=== PATIENT | female | born 1940 | race Caucasian/White ===

== ENCOUNTER 2019-08-20 10:26 | Inpatient (IN) | payer MEDICARE, SELFPAY ==
[2019-07-31 09:16] VITALS: BMI 32.1
[2019-07-31 10:44] VITALS: BP 173/63; PULSE 77; RESP 18; TEMP 37; O2SAT 100
[2019-08-20] VITALS (10 sets, daily range): BP systolic 132–161; BP diastolic 51–63; PULSE 84–96; RESP 16–20; TEMP 36.1–37.1; O2SAT 95–100; BMI 32.6
--- NOTE | ~2019-08-20 | XR_ITS ---
EXAMINATION: XR knee LT 2V DATE: 08/20/2019 10:32 INDICATION: Left knee arthroplasty. Postop. TECHNIQUE: 2 views of left knee were obtained. COMPARISON: Left knee radiographs 07/31/2019 FINDINGS: There is a total left knee arthroplasty without patellar resurfacing in near-anatomic align ment. No fracture. There is gas in the knee joint and soft tissues, consistent with recent surgery. S kin jackson are noted. IMPRESSION: 1. Total left knee arthroplasty in near-anatomic alignment. Reviewed, dictated and finalized at location [facility]
[2019-08-20] MEDS: LACTATED RINGERS 1,000 ML 30 ML IV CONT ×2 (06:50→10:22)
[2019-08-20] MEDS: IBUPROFEN IV 800 MG/200 ML 800 MG/200 ML BAG 400 MG IVPB (07:04)
[2019-08-20 07:06] LABS: Glucose Point of Care 145 (65-105)
--- NOTE | 2019-08-20 07:17 | WPDANESEPPF ---
Anes - Initial Pre Proc Eval Procedure: Operation Date: 08/20/19 07:30 Proposed Procedures p Left Total Knee Arthroplasty - Malcolm Hester MD Date/Time: 08/20/19 07:17 Surgeon: Malcolm Hester MD Pre Op Diagnosis: Left Knee DJD Patient Data Age: 79 Gender: F Height: 5 ft 8 in Weight: 95.6 kg Last Vital Signs Temp 36.3 C L 08/20/19 07:07 Pulse 96 08/20/19 07:07 Resp 20 08/20/19 07:07 BP 161/59 H 08/20/19 07:07 Pulse Ox 100 08/20/19 07:07 Allergies Allergy/AdvReac Type Severity Reaction Status Date / Time codeine Allergy Unknown Nausea Verified 07/31/19 14:00 sitagliptin Allergy Unknown yeast Verified 07/31/19 14:00 infection Home Medications Medication Instructions Recorded Confirmed Type amlodipine 10 mg tablet 10 mg PO DAILY 06/19/19 08/20/19 History furosemide 40 mg tablet 40 mg PO QAM 06/19/19 08/20/19 History glimepiride 2 mg tablet 2 mg PO QAM 06/19/19 08/20/19 History insulin glargine 100 unit/mL (3 14 unit SUB-Q .QHS ml 06/19/19 08/20/19 History mL) subcutaneous pen losartan 100 mg tablet 100 mg PO DAILY 06/19/19 08/20/19 History metformin 500 mg tablet,extended 500 mg PO QID tablet 06/19/19 08/20/19 History release 24 hr spironolactone 25 mg tablet 50 mg PO DAILY tablet 06/19/19 08/20/19 History aspirin [Enteric Coated Aspirin] 81 mg PO DAILY 07/31/19 08/20/19 History pxvbwlj-kwcshaper-jafb 1 tablet PO DAILY 07/31/19 08/20/19 History chlorhexidine gluconate 4 % 1 applic TOPICAL ONCE #3785 ml 07/31/19 07/31/19 Rx topical liquid naproxen sodium [Aleve] 440 mg PO DAILY 07/31/19 08/20/19 History simvastatin [Zocor] 20 mg PO HS 07/31/19 08/20/19 History sulfamethoxazole 800 1 tablet PO Q12H #14 tablet 08/06/19 Rx mg-trimethoprim 160 mg tablet Laboratory Tests 08/20/19 06:53 POC Capillary Glucose 145 mg/dl H mg/dl (65-105) Patient hx anesthesia problems: none Family hx anesthesia problems: none PMFSH Past Medical History Medical History DM renal manif type II Surgical History Surgical History History of total knee arthroplasty Presence of right artificial knee joint Status post ORIF of fracture of ankle Family History Family History Other Diabetes mellitus Family history of arthritis Family history of cardiovascular disease Hypertension Social History Social History Smoking status: Never smoker Second hand tobacco smoke exposure: No Alcohol intake: never Substance use: never Substance use type: does not use Gender identity (if verbalized by the patient): Female Anes - Eval Final PreProcedure Day of Procedure 08/20/19 07:17 Patient weight: obese Heart: regular rate and rhythm Lungs: clear to auscultation Airway: Mallampati scale class III Neurological: alert and oriented Last oral intake: >/= 8 hours ASA classification: III Emergent: no Anesthetic plan: proceed Anesthesia type and monitoring: general LMA and standard monitoring Informed Consent: The patient's anesthetic plan and its attendant risks and benefits were discussed with the patient/family/POA. Questions were solicited and answers provided to the satisfaction of the patient/family/POA.
--- NOTE | 2019-08-20 07:36 | WPDHPUPDATE1 ---
History and Physical Update Update Date/Time: 08/20/19 07:36 History and Physical has been reviewed, including an updated exam of the patient. There are NO changes in the patient's condition. Risks, benefits, and alternatives have been discussed and questions answered. Patient agrees to proceed with procedure.
--- NOTE | 2019-08-20 07:49 | WPDANESPNB ---
Anes - Peripheral Nerve Block Date/Time: 08/20/19 07:49 I have discussed with the patient/family/POA the placement of a left femoral nerve block for post-operative pain management, including associated risks, benefits, complications, and side effects. Alternative methods of post-operative analgesia were detailed. Questions were solicited and answers provided to the satisfaction of the patient/family/POA. Time-Out: A pre-procedural Time-Out was completed immediately before starting the procedure and confirmed: Patient Identification, Site, Procedure, Patient Position and the Availability of Requisite Equipment. Clinical Indications: Acute post-operative pain management requested by the operative surgeon. Nerve Block Insertion Note Anes-nerve block: femoral Patient position: supine Skin prep: chlorhexidine Needle: 22 gauge, stimulating, insulated echogenic needle. Needle length: 120 mm Technique: nerve stimulation lost at (mA) Injectate: bupivacaine 0.5% with epi 5 mcg/ml (30) and dexamethasone (mg) (8mg) Observations: tolerated well Complications: none Procedure start time:: 744 Procedure end time:: 748
[2019-08-20] MEDS: ceFAZolin 2 GM/D5W 50 ML 2 GM/50 ML BAG IVPB ×3 (07:51→23:12)
[2019-08-20] MEDS: GENTAMICIN BONE CEMENT REFOBACIN 1 EACH TOPICAL (08:31)
--- NOTE | 2019-08-20 10:24 | PM.OP ---
Procedure Note - Brief Procedure Note - Brief Date of procedure: 08/20/19 Pre-op diagnosis: Left Knee DJD Post-op diagnosis: same Procedure performed: L TKA Anesthesia: GETA Surgeon: Malcolm Hester MD Estimated blood loss (mL): 100 Drains: No Complications: No immediate complications Condition: stable Disposition: PACU
[2019-08-20 10:35] LABS: Glucose Point of Care 171 (65-105)
--- NOTE | 2019-08-20 11:23 | ADMGEN ---
This patient, Sarahi French, was admitted to -. Patient/family oriented to hospital policies and general routines including ID bracelet, bed and alarms, visiting hours, pain management, procedures, bathroom and other care routines, personal items, smoking policy, room service/diet, and visiting hours. Valuables list has been completed. Information on how to activate the Rapid Response Team has been discussed. Patient/Family are encouraged to report perceived risks to care and to ask questions if they do not understand what they are told or what they should do.
--- NOTE | 2019-08-20 12:33 | PM.IMCN ---
Assessment and Plan Assessment and plan (1) S/P total knee arthroplasty: Code(s): Z96.659 - Presence of unspecified artificial knee joint Status: Acute Assessment and Plan: Patient will be going home with the clerical administrative assistant of her daughter. Pain management per Dr. Hester. DVT prophylaxis per Dr. Hester. (2) Type 2 diabetes mellitus with hyperglycemia: Code(s): E11.65 - Type 2 diabetes mellitus with hyperglycemia Status: Chronic Assessment and Plan: Sliding scale insulin and continue with a long-acting insulin. Patient was restarted on metformin per Dr. Hester. Please continue to monitor BMP. Continue with Amaryl (3) Chronic kidney disease, stage 3 (moderate): Code(s): N18.3 - Chronic kidney disease, stage 3 (moderate) Status: Chronic Assessment and Plan: Recheck BMP in the morning creatinine within normal limits GFR 60. (4) Hypertensive chronic kidney disease with stage 1 through stage 4 chronic kidney disease, or unspecified chronic kidney disease: Code(s): I12.9 - Hypertensive chronic kidney disease with stage 1 through stage 4 chronic kidney disease, or unspecified chronic kidney disease Status: Acute Assessment and Plan: Resume home medications of Norvasc spironolactone and losartan (5) Mixed hyperlipidemia: Code(s): E78.2 - Mixed hyperlipidemia Status: Chronic Assessment and Plan: Continue with Zocor HPI Data of Consult Consult date: 08/20/19 Requesting Physician: Malcolm Hester MD Primary Care Provider: Carlos Zuluaga MD Consult Narrative Narrative: Sarahi French is a 79 year old female who has severe degenerative joint disease in both of her knees. The patient underwent a right total knee arthroplasty on 03/26/2019 and recovered well. The patient has tried multiple conservative measures including physical therapy injections pain management and lifestyle changes. Patient electively underwent a left total knee arthroplasty per Dr. Hester today. Patient did have a nerve block today and is not having any discomfort. Patient does complain of some left hip pain but after repositioning she felt better. No complaints of nausea vomiting. She plans to have her daughter come stay with her to recover. She said her last admission she only was sent home on a high dose of aspirin for anticoagulation. She did well with that. I thank Dr. Hester for the opportunity to consult on this pleasant lady. Date of service 08/20/2019 Review of Systems Review of Systems: All systems reviewed & are unremarkable except as noted in HPI and below Constitutional: Constitutional: Reports as per HPI and Reports no additional constitutional complaints Eyes: Eyes: Reports as per HPI and Reports no additional eye complaints ENT: Reports system reviewed and no additional complaints, except as documented and Reports Normal hearing present Cardiovascular: Cardiovascular: Reports no additional cardiovascular complaints Respiratory: Respiratory: Reports no additional respiratory complaints and Reports no additional respiratory complaints Gastrointestinal: Gastrointestinal: Reports as per HPI and Reports no additional gastrointestinal complaints Musculoskeletal: Musculoskeletal: Reports no additional musculoskeletal complaints Integumentary/Breasts: Skin/Breast: Reports system reviewed and no additional complaints, except as docu and Reports as per HPI Neurologic: Reports system reviewed and no additional complaints, except as documented, Reports as per HPI and Reports Normal hearing present Psychiatric: Psychiatric: Reports no additional psychiatric complaints and Reports as per HPI Endocrine: Endocrine: Reports no additional endocrine complaints Hematologic/Lymphatic: Hematologic/Lymphatic: Reports no additional hematologic/lymphatic complaints Allergic/Immunologic: Allergic/Immunologic: Reports no additional allergic/immunologic complaints
[2019-08-20] MEDS: SODIUM CHLORIDE 0.9% IV 1,000 ML 125 ML IV CONT (12:49)
[2019-08-20] MEDS: metFORMIN HCL XR 500 MG TAB.SR.24H PO ×2 (12:52→17:09)
[2019-08-20] MEDS: DIAZEPAM 5 MG TABLET PO (13:03)
--- NOTE | 2019-08-20 13:29 | OP_ITS ---
DATE OF PROCEDURE: 08/20/2019 PREOPERATIVE DIAGNOSIS: Left knee DJD. POSTOPERATIVE DIAGNOSIS: Left knee DJD. PROCEDURE: Left total knee arthroplasty. ANESTHESIA: General. COMPLICATIONS: None. INDICATIONS: This is a 79-year-old female with end-stage left knee DJD. She was indicated for left total knee arthroplasty. DESCRIPTION OF PROCEDURE: The patient was taken to the operating room in stable position and placed in the supine position. General anesthesia induced and the left lower extremity was prepped and draped sterilely from the toes to the thigh. Incision was made down to the subcutaneous tissues. Medial parapatellar arthrotomy was performed. The patella was everted. There was severe arthrosis in all 3 compartments of the knee joint. IM jan was placed in the femur. Femoral IM jan was placed and a distal femoral cut was made at 5 degrees of valgus removing approximately 10 mm of bone from the high side. Next, the knee was sized to 62.5, a cutting block was placed in line with Whitesides line in the transepicondylar axis. Anterior, posterior, and chamfer cuts were made to the femur. The cuts were excellent. Next, an IM jan was placed in the tibia and a transtibial cut was made removing approximately 10 mm of bone from the high side of the tibia. The tibia was planed to a smooth surface. Posterior osteophytes were removed with an osteotome from the femur. A 71 tibial trial was placed in line with one-third medial aspect of the tibial tubercle. A 62.5 femoral trial was placed and then, eventually a 12 poly was placed. The knee came out to full extension. There was good stability in varus-valgus stress in both flexion and extension. There was good AP stability. The patella tracked without any tilt. There was no excessive rollback in flexion. The trial components were removed and then, a Biomet 71 mm tibial component and a 62.5 femoral component were cemented into place and then, a 12 poly component was secured into place. Once the cement had hardened, the knee was taken through range of motion, was found to be stable to varus valgus stress in both flexion and extension. There was good AP stability and there was good tracking of the patella with no excessive rollback in flexion. The tourniquet was deflated. The bleeders were cauterized. The knee joint was irrigated with sterile Betadine sterile water for approximately 3 minutes and then the arthrotomy was approximated with #1 Vicryl, subcutaneous with 2-0 Vicryl, and the skin with jackson. Wounds washed and placed sterile dressing. The patient was extubated and sent to Recovery. Khalida I MT: Real
[2019-08-20] MEDS: DOCUSATE SODIUM 100 MG CAPSULE PO (17:09)
[2019-08-20] MEDS: CELECOXIB 200 MG CAPSULE PO (17:09)
[2019-08-20] MEDS: INSULIN ASPART (*BKC) 100 UNITS/ML SUB-Q (17:15)
[2019-08-20 17:36] LABS: Glucose Point of Care 342 (65-105)
[2019-08-20] MEDS: metFORMIN HCL XR 500 MG TAB.SR.24H 1000 MG PO (20:38)
[2019-08-20] MEDS: SIMVASTATIN 20 MG TABLET PO (20:38)
[2019-08-20 21:33] LABS: Glucose Point of Care 279 (65-105)
[2019-08-20] MEDS: INSULIN GLARGINE (*BKC) 100 UNITS/ML 14 UNITS SUB-Q (21:50)
[2019-08-21 02:00] VITALS: BP 146/55; PULSE 108; RESP 18; TEMP 36.5; O2SAT 98
[2019-08-21 06:00] VITALS: BP 138/66; PULSE 99; RESP 18; TEMP 36.6; O2SAT 98
[2019-08-21 07:07] LABS: Blood Urea Nitrogen 22 mg/dL (7-17); Carbon Dioxide 21 mmol/L (22-30); Chloride 107 mmol/L (98-107); Estimated CRCL calculation 54 ml/min; Estimated Glomerular Filt Rate 60; Glucose 131 mg/dL (65-105); Potassium 4.2 mmol/L (3.4-5.0); Sodium 140 mmol/L (137-145)
[2019-08-21 07:07] LABS: Basophils Percent Auto 0.1 % (0.2-1.2); Hematocrit 32.1 % (37.0-47.0); Hemoglobin 10.5 g/dL (12.0-15.0); Immature Granulocyte Absolute 0.14 K/mm3 (0.00-0.031); Immature Granulocyte Percent A 0.8 % (0-0.5); Lymphocytes Absolute Auto 1.38 K/mm3 (0.9-3.2); Lymphocytes Percent Auto 7.6 % (18.3-44.2); Mean Corpuscular HGB Conc 32.7 g/dl (32-36); Mean Corpuscular Hemoglobin 29.8 pg (26-34); Mean Corpuscular Volume 91.2 fl (80-100); Mean Platelet Volume 10.8 fl (7.4-10.4); Monocytes Absolute Auto 1.8 K/mm3 (0.1-0.6); Monocytes Percent Auto 9.8 % (2.6-8.5); Neutrophils Absolute Auto 14.8 K/mm3 (1.3-6.7); Neutrophils Percent Auto 81.7 % (45.5-73.1); Platelet Count Result 331 k/mm3 (150-375); Red Blood Count 3.52 M/mm3 (4.2-5.4); Red Cell Distribution Width 13.6 % (11.5-14.5); White Blood Count 18.2 K/mm3 (4.5-10.0)
[2019-08-21] MEDS: ceFAZolin 2 GM/D5W 50 ML 2 GM/50 ML BAG IVPB (08:00)
[2019-08-21] MEDS: LOSARTAN POTASSIUM 100 MG TABLET PO (08:01)
[2019-08-21] MEDS: SPIRONOLACTONE 50 MG TABLET PO (08:01)
[2019-08-21] MEDS: CELECOXIB 200 MG CAPSULE PO ×2 (08:01→17:24)
[2019-08-21] MEDS: FUROSEMIDE 40 MG TABLET PO (08:01)
[2019-08-21] MEDS: GLIMEPIRIDE 2 MG TABLET PO (08:02)
[2019-08-21] MEDS: ASPIRIN 325 MG ENTERIC TABLET 650 MG PO (08:02)
[2019-08-21] MEDS: metFORMIN HCL XR 500 MG TAB.SR.24H 1000 MG PO ×2 (08:02→20:16)
[2019-08-21] MEDS: DOCUSATE SODIUM 100 MG CAPSULE PO ×2 (08:03→17:24)
[2019-08-21] MEDS: AMLODIPINE BESYLATE 5 MG TABLET 10 MG PO (08:03)
[2019-08-21 10:00] VITALS: BP 127/45; PULSE 64; RESP 14; TEMP 36.4; O2SAT 98
--- NOTE | 2019-08-21 10:49 | PM.PNORT ---
Progress Note: A&P Assessment and Plan (1) S/P total knee arthroplasty: Qualifiers: Laterality: left Qualified Code(s): Z96.652 - Presence of left artificial knee joint Code(s): Z96.659 - Presence of unspecified artificial knee joint Status: Acute Assessment and Plan: POD #1: LEFT TKA Continue PT/OT. WBAT with walker. Fall Risk. Continue pain control. Ice. No pillows under knee. Dressing changed. Incision well-approximated. No signs of dehiscence or infection. Continue DVT prophylaxis with Aspirin. Continue SCDs. Incentive spirometry. Dispo: Home with Home Health likely today pending progress with PT/OT. Subjective Subjective Date/Time Seen: 08/21/19 10:49 Post Op day: 1 Principal diagnosis: Left TKA Interval history: No complaints. Denies pain. Wants to go home. Working well with PT/OT. Review of Systems Review of Systems: All systems reviewed & are unremarkable except as noted in HPI and below Constitutional: Constitutional: Denies fever(s) and Denies headache(s) ENT: Denies headache(s) Cardiovascular: Cardiovascular: Denies chest pain, Denies diaphoresis, Denies palpitations and Denies dyspnea Respiratory: Respiratory: Denies dyspnea Gastrointestinal: Gastrointestinal: Denies abdominal pain, Denies constipation, Denies nausea and Denies vomiting Genitourinary: Genitourinary: Reports nocturia and Denies dysuria Musculoskeletal: Musculoskeletal: Reports arthralgias (Left Knee ) and Reports joint swelling (Left Knee ) Neurologic: Denies headache(s) Endocrine: Endocrine: Denies palpitations Exam Const: General: comfortable and no acute distress Resp: Effort & Inspection: normal respiratory effort Cardio: Rate: regular rate Rhythm: regular rhythm GI: GI Palp: Yes Soft to palpation, No Tenderness to palpation present (GI) and No Guarding due to palpation present (GI) Skin: Wounds: wounds noted Other: Incision c/d/i. No surrounding redness/warmth. No hematoma. Mild ecchymosis. No wound dehiscence Neuro: Cognition (Neuro): normal cognition Other: NV intact aside from block. Moves toes. Sensation intact to light touch. +ankle dorsiflexion/plantarflexion. Extrem: Right upper extremity: normal to inspection, full ROM and normal capillary refill Left upper extremity: normal to inspection, full ROM and normal capillary refill Right lower extremity: normal to inspection, full ROM and knee (Previous right TKA incision well-healed ) Details: normal to inspection and normal ROM; no tenderness and no swelling Left lower extremity: normal to inspection, full ROM and knee Details: tenderness, swelling, abnormal ROM (ROM limited due to pain/consistent with recent surgery ) and other Other: Incision left TKA dressing c/d/i. No hematoma. No signs of infection. No wound dehiscence. Psych: Mental Status: mental status grossly normal Objective Data Vital Signs Vital Signs: Vital Signs - 24 hr 08/20/19 10:54 08/20/19 11:09 08/20/19 11:16 Temperature Pulse Rate 85 87 86 Respiratory Rate 16 18 18 Blood Pressure 141/58 H 143/62 H 140/63 Pulse Oximetry 95 99 99 08/20/19 11:25 08/20/19 11:40 08/20/19 12:40 Temperature 36.7 C 36.5 C 37.1 C Pulse Rate 90 84 86 Respiratory Rate 16 16 16 Blood Pressure 137/55 L 132/53 L 135/51 L Pulse Oximetry 98 98 98 08/20/19 22:00 08/21/19 02:00 08/21/19 06:00 Temperature 36.6 C 36.5 C 36.6 C Pulse Rate 93 108 H 99 Respiratory Rate 16 18 18 Blood Pressure 138/59 L 146/55 H 138/66 Pulse Oximetry 98 98 98 Intake/Output Intake/Output: Intake & Output 08/18/19 08/19/19 08/20/19 08/21/19 23:59 23:59 23:59 23:59 Intake Total 2530 540 Output Total 800 1200 Balance 1730 -660 Meds/Results Medications: Active Medications Generic Name Dose Route Start Last Admin Trade Name Freq PRN Reason Stop Dose Admin Acetaminophen 1,000 mg 08/20/19 10:25 Tylenol Tablet PO Q6H PRN Mild Pain (1-3) Amlod
[2019-08-21 11:06] LABS: Glucose Point of Care 155 (65-105)
--- NOTE | 2019-08-21 13:17 | WPDANESPN ---
Anes - Prog Note Post-Op Date/Time: 08/21/19 13:17 Cardiovascular status: normal Respiratory status: normal Airway patency: baseline Mental status: baseline Post-Op hydration status: normal Vital Signs: Last Vital Signs Temp 36.4 C L 08/21/19 10:00 Pulse 64 08/21/19 10:00 Resp 14 08/21/19 10:00 BP 127/45 L 08/21/19 10:00 Pulse Ox 98 08/21/19 10:00 I/O: Intake & Output 08/20/19 08/21/19 08/21/19 23:59 07:59 15:59 Intake Total 1790 300 240 Output Total 800 1200 Balance 990 -900 240 Laboratory Tests 08/21/19 06:31 08/21/19 06:30 08/20/19 08/20/19 08/21/19 17:08 20:59 06:30 WBC RBC Hgb Hct MCV MCH MCHC RDW Plt Count MPV Immature Gran % (Auto) Neut % (Auto) Lymph % (Auto) [place] % (Auto) Eos % (Auto) Baso % (Auto) Lymph # (Auto) [place] # (Auto) Eos # (Auto) Baso # (Auto) Abs Immat Gran (auto) Absolute Neuts (auto) Absolute Nucleated RBC Nucleated RBC % Sodium 140 Potassium 4.2 Chloride 107 Carbon Dioxide 21 L BUN 22 H Creatinine 0.90 Estim Creat Clear Calc 54 Estimated GFR 60 Glucose 131 H POC Capillary Glucose 342 H 279 H Calcium 9.0 08/21/19 08/21/19 06:31 10:59 WBC 18.2 H RBC 3.52 L Hgb 10.5 L Hct 32.1 L MCV 91.2 MCH 29.8 MCHC 32.7 RDW 13.6 Plt Count 331 MPV 10.8 H Immature Gran % (Auto) 0.8 H Neut % (Auto) 81.7 H Lymph % (Auto) 7.6 L [place] % (Auto) 9.8 H Eos % (Auto) 0.0 Baso % (Auto) 0.1 L Lymph # (Auto) 1.38 [place] # (Auto) 1.8 H Eos # (Auto) 0.0 Baso # (Auto) 0.0 Abs Immat Gran (auto) 0.14 H Absolute Neuts (auto) 14.8 H Absolute Nucleated RBC 0.0 Nucleated RBC % 0.0 Sodium Potassium Chloride Carbon Dioxide BUN Creatinine Estim Creat Clear Calc Estimated GFR Glucose POC Capillary Glucose 155 H Calcium Post-procedural complaints: none Patient Feedback: Patient satisfied with anesthetic care.
[2019-08-21 14:00] VITALS: BP 136/47; PULSE 93; RESP 16; TEMP 35.9; O2SAT 97
--- NOTE | 2019-08-21 14:19 | PM.IMPN ---
Progress Note: A&P Assessment and Plan (1) Hypertensive chronic kidney disease with stage 1 through stage 4 chronic kidney disease, or unspecified chronic kidney disease: Code(s): I12.9 - Hypertensive chronic kidney disease with stage 1 through stage 4 chronic kidney disease, or unspecified chronic kidney disease Status: Acute Assessment and Plan: Creat is 0.9 today. pt has stage 3 CKD (2) S/P total knee arthroplasty: Qualifiers: Laterality: left Qualified Code(s): Z96.652 - Presence of left artificial knee joint Code(s): Z96.659 - Presence of unspecified artificial knee joint Status: Acute Assessment and Plan: Post op day 1 left knee arthroplasty, pt is doing well and is medically stable for discharge. Pt can follow with her PCP for further discussion on her home medications. Pt can continue with pain control, PT/OT at home, anticoagulation and other orthopedics recommendations. (3) Type 2 diabetes mellitus with hyperglycemia: Code(s): E11.65 - Type 2 diabetes mellitus with hyperglycemia Status: Chronic Assessment and Plan: Glucose is131, hbaic is 7.8 continue home medications of glimepiride and metormin (4) Mixed hyperlipidemia: Code(s): E78.2 - Mixed hyperlipidemia Status: Chronic Assessment and Plan: Pt is on simvastatin, i do not have a full lipid panel on this patient but after much discussion, she wants to stop her statin and may discuss this with her PCP. Feels her home diet is good. (5) Chronic kidney disease, stage 3 (moderate): Code(s): N18.3 - Chronic kidney disease, stage 3 (moderate) Status: Chronic Assessment and Plan: Chronic and stable (6) HTN (hypertension): Code(s): I10 - Essential (primary) hypertension Status: Chronic Assessment and Plan: Chronic and stable, pt would like to discuss with her PCP, pt is on spirolonactone, lasix, losartan and norvasc, Bp is controlled, pt wants to discuss with her PCP regarding stopping one of her diuretics feels like she does not need it anymore. But does mention she gets white coat HTN when she meets her PCP. So i did not make any changes to her home medications. Subjective Date/time seen: 08/21/19 14:19 Interval history: Sarahi French is a 79 year old female who has severe degenerative joint disease in both of her knees. The patient underwent a right total knee arthroplasty on 03/26/2019. Yesterday had left knee arthroplasty, post op day 1, pt is doing well with theraphy would like to go home. Pt has history of dm, ckd and hld. Pt Bp is 127/45. Pt is medically stable for discharge. Review of Systems Review of Systems: All systems reviewed & are unremarkable except as noted in HPI and below Musculoskeletal: Comments: Left knee mild pain Exam Const: General: cooperative and healthy appearing; No in distress Nutritional Appearance: overweight Orientation/consciousness: oriented to person HENMT: Head: normal to inspection Resp: Effort & Inspection: no respiratory distress Auscultation: no rhonchi and no wheezes Cardio: Rate: regular rate Rhythm: regular rhythm GI: Inspection: normal to inspection GI Palp: No abdominal tenderness, No Guarding due to palpation present (GI) and No Hepatomegaly present Auscultation: normal bowel sounds Neuro: General: oriented to person Extrem: Other: Left knee sp arthoplasty with polar ice machine Psych: Mental Status: mental status grossly normal Objective Data Vital Signs Vital Signs: Vital Signs - 24 hr 08/20/19 22:00 08/21/19 02:00 08/21/19 06:00 Temperature 36.6 C 36.5 C 36.6 C Pulse Rate 93 108 H 99 Respiratory Rate 16 18 18 Blood Pressure 138/59 L 146/55 H 138/66 Pulse Oximetry 98 98 98 08/21/19 10:00 Temperature 36.4 C L Pulse Rate 64 Respiratory Rate 14 Blood Pressure 127/45 L Pulse Oximetry 98 Intake/Output Intake/Output: Intake & Output 08/18/19 08/19/19
[2019-08-21 16:00] LABS: Glucose Point of Care 111 (65-105)
[2019-08-21] MEDS: INSULIN GLARGINE (*BKC) 100 UNITS/ML 14 UNITS SUB-Q (20:16)
[2019-08-21] MEDS: SIMVASTATIN 20 MG TABLET PO (20:16)
[2019-08-21 22:00] VITALS: BP 140/56; PULSE 90; RESP 18; TEMP 36.9; O2SAT 96
[2019-08-21 22:17] LABS: Glucose Point of Care 272 (65-105)
[2019-08-22 06:00] VITALS: BP 135/66; PULSE 93; RESP 18; TEMP 36.8; O2SAT 97
[2019-08-22 07:19] LABS: Glucose Point of Care 96 (65-105)
[2019-08-22] MEDS: LOSARTAN POTASSIUM 100 MG TABLET PO (08:44)
[2019-08-22] MEDS: metFORMIN HCL XR 500 MG TAB.SR.24H 1000 MG PO (08:44)
[2019-08-22] MEDS: AMLODIPINE BESYLATE 5 MG TABLET 10 MG PO (08:44)
[2019-08-22] MEDS: FUROSEMIDE 40 MG TABLET PO (08:44)
[2019-08-22] MEDS: ASPIRIN 325 MG ENTERIC TABLET 650 MG PO (08:44)
[2019-08-22] MEDS: SPIRONOLACTONE 50 MG TABLET PO (08:44)
[2019-08-22] MEDS: DOCUSATE SODIUM 100 MG CAPSULE PO (08:44)
[2019-08-22] MEDS: GLIMEPIRIDE 2 MG TABLET PO (08:45)
[2019-08-22] MEDS: CELECOXIB 200 MG CAPSULE PO (08:45)
[2019-08-22 12:37] LABS: Glucose Point of Care 69 (65-105)
--- NOTE | 2019-08-22 13:15 | PM.IMPN ---
Progress Note: A&P Assessment and Plan (1) Hypertensive chronic kidney disease with stage 1 through stage 4 chronic kidney disease, or unspecified chronic kidney disease: Code(s): I12.9 - Hypertensive chronic kidney disease with stage 1 through stage 4 chronic kidney disease, or unspecified chronic kidney disease Status: Acute Assessment and Plan: Creat is 0.9 today. pt has stage 3 CKD Stable creatinine at this time. Patient is eating and drinking well. (2) S/P total knee arthroplasty: Qualifiers: Laterality: left Qualified Code(s): Z96.652 - Presence of left artificial knee joint Code(s): Z96.659 - Presence of unspecified artificial knee joint Status: Acute Assessment and Plan: Post op day #2 left knee arthroplasty, pt is doing well and is medically stable for discharge. Pt can follow with her PCP for further discussion on her home medications. Pt can continue with pain control, PT/OT at home, anticoagulation and other orthopedics recommendations. (3) Type 2 diabetes mellitus with hyperglycemia: Code(s): E11.65 - Type 2 diabetes mellitus with hyperglycemia Status: Chronic Assessment and Plan: Glucose is 131 this morning, hbaic is 7.8 Continue home medications of glimepiride and metormin (4) Mixed hyperlipidemia: Code(s): E78.2 - Mixed hyperlipidemia Status: Chronic Assessment and Plan: Pt is on simvastatin, I do not have a full lipid panel on this patient but after much discussion. She wants to stop her statin and may discuss this with her PCP. Feels her home diet is good. (5) Chronic kidney disease, stage 3 (moderate): Code(s): N18.3 - Chronic kidney disease, stage 3 (moderate) Status: Chronic Assessment and Plan: Chronic and stable (6) HTN (hypertension): Code(s): I10 - Essential (primary) hypertension Status: Chronic Assessment and Plan: Chronic and stable, pt would like to discuss with her PCP, pt is on spirolonactone, lasix, losartan and norvasc, BP is controlled. Will continue with blood pressure medications. Time Spent With Patient Time with patient: 25 - 35 minutes Subjective Date/time seen: 08/22/19 13:15 Interval history: Date of service 08/22/2019: The patient is feeling much better today. She has been cleared by Physical and Occupational surgery to return home with home health. She has been eating and drinking without any issues. She does report slight swelling to her left leg but it is chronic. She has not passing gas but denies any bowel movement since surgery. She denies any chest pain, shortness breath, cough, sore throat, nausea, vomiting, abdominal pain, diarrhea, constipation, calf pain or any other symptoms at this time. Review of Systems Review of Systems: All systems reviewed & are unremarkable except as noted in HPI and below Exam Narrative: Exam Narrative: General: 79-year-old woman sitting up beside the bed talking with the nurse. Appears comfortable. In no acute distress. Skin: No jaundice or cyanosis. Good skin turgor. Neck: Full range of motion. Supple. Respiratory: Lungs are clear to auscultation bilaterally. No bony chest wall tenderness. Cardiovascular: The heart has a regular rate and rhythm without murmur. Lower extremities: Post surgical dressing in place to left knee. No drainage noted. Trace lower extremity edema left greater than right. Distal pulses are easily palpated. No calf tenderness to palpation. Gastrointestinal: The abdomen is soft, nontender and nondistended with active bowel sounds. Psychiatric: Lucid and oriented. Memory intact. Neurologic: No focal deficits. Speech is clear. No facial dr
[2019-08-22 14:00] VITALS: BP 130/52; PULSE 94; RESP 18; TEMP 36.6; O2SAT 98
--- NOTE | 2019-08-22 15:30 | PC.NURSE ---
Pt left during while [employer] was down at 1430. General discharge instructions given to patient and family. Phoned patient at this time and went over discharge instructions. Pt states understanding. Discharge instructions will be mailed to patient.
--- NOTE | 2019-09-30 14:46 | PM.DS ---
DS: Diagnosis Admitting Diagnosis Admitting Diagnosis: Unilateral primary osteoarthritis, left knee Discharge Diagnosis (1) Left knee DJD: Qualifiers: Osteoarthritis type: primary Qualified Code(s): M17.12 - Unilateral primary osteoarthritis, left knee Code(s): M17.12 - Unilateral primary osteoarthritis, left knee Status: Acute DS: Summary Time Spent with Patient Time attestation: Total time spent providing and/or coordinating discharge services: Discharge Plan Discharge Attending physician on discharge: Malcolm Hester Consulting providers: Elmira Schaefer ; Batsheva Guzman ; Vania Hung ; Rowena Diaz ; John Manzano V. Discharging Clinician: Malcolm Hester Anticipated Discharge Date/Time: 08/22/19 12:00 Patient Disposition: Home Health Service Activity: may shower, no driving and follow weight bearing status Diet: as tolerated Wound Care Instructions: keep dressing dry Discharge Instructions: Per Care Coordination, pt. will discharge home with [facility] for continued Pt/Ot. Orthopedic Discharge Instructions: Your dressing will be changed today prior to your discharge. You will be sent with one additional dressing to be changed by the home health RN in 5 days. Your jackson will be removed on the 14th day after surgery. You may shower but DO NOT submerge in a bath tub until released by Dr. Hester. Please walk with a walker at all times until released by Dr. Hester. Do not drive until released by Dr. Hester. Continue use of your ice machine. Protect your skin with a sheet/towel prior to applying ice machine. Your medications have been called into your pharmacy. Follow up as previously scheduled, your appointment is also indicated in these instructions. Contact our office with any questions or concerns at [phone]. Patient Instructions: Antibiotic Form Stand Alone Forms: General Discharge Information Follow-up/Referrals: Malcolm Hester MD [Physician] - 09/11/19 9:15 am (You have a follow up appointment with Dr. Hester on 09/11 at 9:15 AM. Please contact our office with any questions/concerns at [phone]. ) Discharge Medications: New celecoxib [Celebrex] 200 mg Capsule 200 mg PO BIDWM 14 Days Qty: 28 RF: 0 aspirin 325 mg Tablet,Delayed Release (Dr/Ec) 650 mg PO DAILY 21 Days Qty: 42 RF: 0 docusate sodium 100 mg Capsule 100 mg PO BID 30 Days Qty: 60 RF: 0 oxycodone-acetaminophen 5-325 mg Tablet 1 tablet PO Q4-6H PRN (Reason: Pain Rated 4-6) Qty: 56 RF: 0 Continued simvastatin [Zocor] 20 mg tablet 20 mg PO HS RF: 0 [id number] 333-133-5 mg Tablet 1 tablet PO DAILY RF: 0 glimepiride [Amaryl] 2 mg tablet 2 mg PO QAM RF: 0 Basaglar KwikPen U-100 Insulin 100 unit/mL (3 mL) insulin pen 14 unit SUB-Q .QHS RF: 0 amlodipine [Norvasc] 10 mg tablet 10 mg PO DAILY RF: 0 Held aspirin [Enteric Coated Aspirin] 81 mg Tablet,Delayed Release (Dr/Ec) 81 mg PO DAILY RF: 0 Hold Instructions: Resume on 09/11/19. Hold for the next 21 days. Resume AFTER transition off of 325mg PO Aspirin BID Discontinued naproxen sodium [Aleve] 220 mg Capsule 440 mg PO DAILY RF: 0 No Action spironolactone 25 mg tablet 50 mg PO DAILY Qty: 90 RF: 2 losartan [Cozaar] 100 mg tablet 100 mg PO DAILY Qty: 30 RF: 5 furosemide 40 mg tablet 40 mg PO QAM Qty: 90 RF: 0 metformin 500 mg tablet extended release 24 hr 2,000 mg PO DAILY Qty: 360 RF: 2 Date of admission: 08/20/19 10:26 Primary Care Provider: Carlos Zuluaga Admitting Provider: Malcolm Hester Discharge Date/Time: 08/22/19 14:30 Attending physician on admission: Malcolm Hester Condition: Stable Quality VTE Prophylaxis VTE prophylaxis: mechanical ordered
== END 2019-08-22 14:30 | disposition home health service (06) | DRG 470 ==
LOC: ANH3MEDSUR 11:45
PROVIDERS: Admitting Provider Orthopaedic Surgery; PCP Family Medicine; Visit Provider Orthopaedic Surgery
PROC: 0SRD0J9 Replacement of Left Knee Joint with Synthetic Substitute, Cemented, Open Approach (ICD-10-PCS; CPT 27447; principal; 2019-08-20 07:30)
DX: M17.12 Unilateral primary osteoarthritis, left knee (principal); E66.9 Obesity, unspecified; Z68.32 Body mass index [BMI] 32.0-32.9, adult; E11.65 Type 2 diabetes mellitus with hyperglycemia; E11.22 Type 2 diabetes mellitus with diabetic chronic kidney disease; I12.9 Hypertensive chronic kidney disease with stage 1 through stage 4 chronic kidney disease, or unspecified chronic kidney disease; N18.3 Chronic kidney disease, stage 3 (moderate); Z96.651 Presence of right artificial knee joint; E78.2 Mixed hyperlipidemia; Z98.42 Cataract extraction status, left eye; Z98.41 Cataract extraction status, right eye; Z79.82 Long term (current) use of aspirin
CPT/HCPCS: 36415; 73560; 80048; 85025; 86850; 86900; 86901; 97110; 97116; 97162; 97165; 97530; 97535; A9270; C1713; C1776; J0131; J0171; J0690; J1100; J1170; J1741; J1815; J2250; J2270; J2405; J2704; J2795; J3010; J7030; J7120

== ENCOUNTER 2023-07-23 14:06 | Outpatient (CLI) | payer MEDICARE, SELFPAY ==
--- NOTE | ~2023-07-23 | US_ITS ---
EXAMINATION: US venous doppler LE RT DATE: 07/23/2023 15:01 INDICATION: Right lower limb pain. TECHNIQUE: Grayscale ultrasound images without and with compression and Doppler ultrasound images of the right lower extremity veins were obtained. COMPARISON: None. FINDINGS: The visualized portions of right common femoral vein, profunda (deep) femoral vein, femoral vein, pop liteal vein, peroneal veins, posterior tibial veins, and greater saphenous vein outflow are patent. IMPRESSION: 1. No deep venous thrombosis. Reviewed, dictated and finalized at location A. [employer]UC[employer]
== END 2023-07-23 14:07 | disposition home or self-care (01) ==
PROVIDERS: PCP Family Medicine; Visit Provider Family Medicine
DX: M79.661 Pain in right lower leg (principal)
CPT/HCPCS: 93971